=== PATIENT | female | born 1975 | race Caucasian/White ===

== ENCOUNTER 2023-09-25 08:53 | Outpatient (CLI) | payer BC, SELFPAY ==
--- NOTE | 2023-09-25 09:15 | CRLHL7_ITS ---
For Patients: As a result of the Century Cures Act, medical imaging exams and procedure reports are released immediately into your electronic medical record. You may view this report before your referring provider. If you have questions, please contact your health care provider. ULTRASOUND-GUIDED RIGHT BREAST BIOPSY AND POST-BIOPSY DIGITAL MAMMOGRAM FOR BIOPSY MARKER PLACEMENT CLINICAL HISTORY: Solid and cystic nodule COMPARISON STUDIES: 09/09/2023 TECHNIQUE: Real-time ultrasound with image documentation was used for targeting the breast lesion. Core biopsy specimens were obtained using an automated gun with a 14-gauge biopsy needle. Post-biopsy CC and ML digital mammograms were obtained to document position of the biopsy marker. CONSENT and TIME OUT: The procedure, risks, and alternatives were explained to the patient and a consent was signed. [place] Protocol was followed including pre-procedure verification that relevant information/documentation was available, reviewed and properly matched to the patient; consent accurate and complete; and equipment and supplies available. Time Out was conducted just prior to starting procedure to verify the four required elements: patient identity, correct side/site marked (if applicable), procedure, relevant images/results properly labeled and displayed (if applicable). PROCEDURE: The patient was positioned supine on the ultrasound table. The breast was prepped with ChloraPrep. 8 cc 1% lidocaine used for local anesthesia. Core samples were obtained. A sterile metal biopsy clip was placed percutaneously to antonia the lesion position within the breast. The specimens were placed in 10% formalin and sent to the pathology department. Pressure was held on the biopsy site until all bleeding subsided. The skin incision was closed with Steri-Strips. An ice pack was positioned over the biopsy site. Post-biopsy instructions were reviewed with the patient, and a written copy was given to her. LATERALITY: RIGHT breast LESION: Solid and cystic nodule measuring 2.1 x 1.1 x 1.8 cm at 10 o`clock, 6 cm from the nipple. SUSPICION FOR MALIGNANCY: Low NUMBER OF SAMPLES: 5 BIOPSY CLIP SHAPE: Oval-shaped PROXIMITY OF CLIP TO TARGET: Within the lesion IMPRESSION: Ultrasound-guided RIGHT breast biopsy. When the pathology report is available, an addendum to this report will be made. ACR not applicable. Dictated by Rowdy Reyes MD @ 09/25/2023 1:29:19 PM CRL:emily RD/Dictated by: Rowdy Reyes MD @ 09/25/2023 1:29:00 PM ----ADDENDUM---- ADDENDUM: The final pathology report demonstrates nodular proliferative fibrocystic change and fragments of cyst wall. It is negative for atypia and malignancy. The final pathology report is concordant with the imaging findings. MICHELLE REEVES M.D. GARETT:benedicto D& Transcribed: 12:20 p.m. [email or web address] (Electronically Signed)
--- NOTE | 2023-09-25 10:00 | CRLHL7_ITS ---
For Patients: As a result of the Century Cures Act, medical imaging exams and procedure reports are released immediately into your electronic medical record. You may view this report before your referring provider. If you have questions, please contact your health care provider. PLEASE SEE RIGHT BREAST ULTRASOUND-GUIDED BIOPSY OF SAME DAY. CRL:emily RD/Dictated by: Rowdy Reyes MD @ 09/25/2023 1:29:00 PM (Electronically Signed)
== END 2023-09-25 08:54 | disposition home or self-care (01) ==
LOC: US 08:54
PROVIDERS: PCP Family Medicine; Visit Provider Family Medicine
DX: N63.10 Unspecified lump in the right breast, unspecified quadrant (principal); R92.8 Other abnormal and inconclusive findings on diagnostic imaging of breast
CPT/HCPCS: 19083; 77065; 88305; A4648; A4649